=== PATIENT | female | born 1945 | race Caucasian/White ===

== ENCOUNTER 2018-10-13 16:45 | Inpatient (IN) | payer MEDICARE ==
[2018-10-13 17:07] VITALS: BP 171/93
[2018-10-13] MEDS ORDERED: Maalox 30 mL Cup PO PRN (17:11)
[2018-10-13] MEDS ORDERED: Magnesium Hydroxide (MOM) 30 mL UDC PO PRN (17:11)
[2018-10-14] MEDS ORDERED: GLUCAGON HCl 1 MG KIT IM PRN (00:36)
[2018-10-14] MEDS ORDERED: Dextrose 50% 50 mL Abboject IVP PRN (00:36)
[2018-10-14] MEDS: INSULIN LISPRO SLIDING SCALE 100 UNITS/ML UNIT SUBQ SCH ×4 (06:39→20:37)
[2018-10-14 07:49] LABS: CHOLESTEROL 179 mg/dL (<200); HDL -HIGH DENSITY LIPOPROTEIN 62 mg/dL (23-92); TRIGLYCERIDES 252 mg/dL (<150)
[2018-10-14] MEDS: Multivitamin Tab PO SCH (08:36)
--- NOTE | 2018-10-14 14:09 | Psychiatric Evaluation ---
DATE OF SERVICE: 10/14/2018 IDENTIFYING INFORMATION: The patient is a 72-year-old female. CHIEF COMPLAINT: I called 911 because I was drinking. HISTORY OF PRESENT ILLNESS: The patient reports she has been drinking too much, she drank 2 days in a row, but she drank before that and she felt not safe and anxious, so she called 911. She reported that she has been sleeping well. She has been anxious. Appetite varies. She denies any intent to harm herself or anyone. She reported never tried to harm herself. No auditory or visual hallucination. Lives with her son. PAST PSYCHIATRIC HISTORY: Denies prior psychiatric treatment other than being treated for alcohol dependence. MEDICAL HISTORY: As per medical doctor. ALLERGIES: THE PATIENT IS ALLERGIC TO SULFA ANTIBIOTICS. MEDICATIONS: She is also diabetic and on insulin, glucagon, ibuprofen. FAMILY AND SOCIAL HISTORY: The patient reports she has been for 18 years, was for 48 years. She has three children, one boy and 2 girls. She lives with her son. She reported that she has 12th grade education. 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 She lives on social [address]. MENTAL STATUS EXAMINATION: Appropriately dressed and groomed. She was not sure of her age, first she told me she was 72, then she said she was 74 going to 73. She, however, was able to tell me the date, where she is, why she is here. She denies any intent to harm himself or anyone. She denies any visual hallucination or paranoia. She reported that she is sleeping well. Appetite varies. No audiovisual, no paranoia. Her long-term is good for age, date of . Recent memory is good and events after coming here. Her insight about her illness is fair. She knows she has a problem. Judgment is poor with her drinking. IMPRESSION: Chronic alcohol dependence, generalized anxiety disorder. MEDICAL DIAGNOSES: As per medical doctor. INITIAL TREATMENT PLAN: The patient is already on Ativan to be given as needed if she is showing signs and symptoms of alcohol detoxification. I will be adding Neurontin, folic acid, and thiamine. We will do group therapy, milieu therapy, and individual therapy. ESTIMATED LENGTH OF STAY: 3-7 days. DISCHARGE CRITERIA: No longer detoxing, if any detox happens and decrease anxiety after discharge, outpatient treatment. [facility]# [id number]
--- NOTE | 2018-10-15 03:29 | History & Physical ---
ADMIT DATE: 10/13/2018 REASON FOR ADMISSION: Psychiatric disorder. HISTORY OF PRESENT ILLNESS: This 72-year-old female with underlying history of diabetes, mental disorder, admitted to Geropsych Unit for underlying psychiatric illnesses by Dr. Root. Dr. Root requested a medical H and P on this patient. The patient denies any medical complaints or concerns. PAST MEDICAL HISTORY: Diabetes with neuropathy. PAST SURGICAL HISTORY: Hysterectomy in the past. FAMILY HISTORY: Noncontributory. SOCIAL HISTORY: She lives at home. Denies any tobacco use. CURRENT MEDICATIONS: Reviewed. ALLERGIES: To SULFA. REVIEW OF SYSTEMS: As per HPI, 12-point system is negative. PHYSICAL EXAMINATION: VITAL SIGNS: Temperature 97.3, pulse 91, respiratory rate 20, blood pressure 150/70. HEENT: Unremarkable. HEART: S1, S2 normal. LUNGS: Clear to auscultation. ABDOMEN: Soft, nontender. No guarding. NEUROLOGIC: Alert, awake, follows commands, moves all extremities. EXTREMITIES: No edema noted. ASSESSMENT: 1. Diabetes type 2. 2. Diabetic neuropathy. 3. Hypertension. 4. Mental disorder. PLAN: The patient will be continued on blood sugar check, insulin sliding coverage will be given. The patient is on lisinopril for blood pressure. We will monitor vital signs closely. Follow up with primary MD upon discharge ____. Psych, follow with the psychiatrist. The patient is medically stable. Thank you Dr. Root for allowing me to participate in the care of this patient. [facility]# [id number]
[2018-10-15] MEDS: INSULIN LISPRO SLIDING SCALE 100 UNITS/ML UNIT SUBQ SCH ×4 (06:38→20:52)
[2018-10-15 07:06] LABS: A1C 6.3 % (4.8-5.6)
[2018-10-15] MEDS: Multivitamin Tab PO SCH (08:30)
--- NOTE | 2018-10-15 09:01 | Psychiatric Evaluation ---
DATE OF SERVICE: ADDENDUM MENTAL STATUS EXAMINATION: Appropriately dressed and groomed. She was not sure of her age, first she told me she was 72, then she said she was 74 going to 73. She, however, was able to tell me the date, where she is, why she is here. She denies any intent to harm himself or anyone. She denies any visual hallucination or paranoia. She reported that she is sleeping well. Appetite varies. No audiovisual, no paranoia. Her long-term is good for age, date of . Recent memory is good and events after coming here. Her insight about her illness is fair. She knows she has a problem. Judgment is poor with her drinking. IMPRESSION: Chronic alcohol dependence, generalized anxiety disorder. MEDICAL DIAGNOSES: As per medical doctor. INITIAL TREATMENT PLAN: The patient is already on Ativan to be given as needed if she is showing signs and symptoms of alcohol detoxification. I will be adding Neurontin, folic acid, and thiamine. We will do group therapy, milieu therapy, and individual therapy. ESTIMATED LENGTH OF STAY: 3-7 days. DISCHARGE CRITERIA: No longer detoxing, if any detox happens and decrease anxiety after discharge, outpatient treatment. JOB# [id number]
[2018-10-16] MEDS: INSULIN LISPRO SLIDING SCALE 100 UNITS/ML UNIT SUBQ SCH ×4 (06:44→20:37)
[2018-10-16] MEDS: Multivitamin Tab PO SCH (08:37)
--- NOTE | 2018-10-16 19:17 | Progress Notes ---
DATE: SUBJECTIVE: Chart reviewed and the patient interviewed. Also discussed the patient's condition with the staff and reviewed records and labs. The patient is still severely depressed and she is still anxious. The patient also is still feeling hopeless and helpless. She also is guarded and suspicious. She admitted that she was drinking heavily and that she has been depressed, but she cannot elaborate on reasons for her heavy drinking and depression. On the other hand, the patient has no symptoms or signs of withdrawal, but she is still anxious and depressed and slightly tremulous. ASSESSMENT: The patient is still depressed and suicidal and also high risk relapse. TREATMENT PLAN: Continue detox. Also, continue to monitor her behavior and her condition closely. Also, we will add Lexapro in a dose of 10 mg every day and we will continue to follow up closely. [facility]# [id number]
--- NOTE | 2018-10-16 21:39 | General Progress Note ---
Subjective - Review of Systems Service Date: 10/16/18 Subjective: Patient feels fine denied any complaints Objective - Results Recent Labs: Laboratory Last Values POC Glucose 124 MG/DL (70 - 105) H 10/16/18 17:09 Triglycerides 252 mg/dL (<150) H 10/14/18 07:18 Cholesterol 179 mg/dL (<200) 10/14/18 07:18 LDL Cholesterol Direct 108 mg/dL (75-193) 10/14/18 07:18 HDL Cholesterol 62 mg/dL (23-92) 10/14/18 07:18 TSH 2.86 uIU/ml (0.34-5.60) 10/14/18 07:18 - Physical Exam Vitals and I&O: Vital Signs Temp 97.6 F 10/16/18 14:00 Pulse 91 10/16/18 14:00 Resp 18 10/16/18 14:00 BP 153/92 10/16/18 14:00 Pulse Ox 98 10/16/18 14:00 Intake & Output 10/16/18 10/16/18 10/17/18 06:59 18:59 06:59 Intake Total 120 1500 Balance 120 1500 Intake: Oral 120 1500 Other: # Voids 1 3 # Bowel Movements 0 0 Active Medications: Current Medications Acetaminophen (Tylenol) 650 mg PO Q4HR PRN PRN Reason: Mild Pain / Temp above 100 Stop: 12/12/18 17:10 Last Admin: 10/14/18 20:37 Dose: 650 mg Al Hydrox/Mg Hydrox/Simethicone (Maalox) 30 ml PO Q4HR PRN PRN Reason: GI DISTRESS Stop: 12/12/18 17:10 Dextrose (D50w) 50 ml IVP PRN PRN PRN Reason: Blood Glucose less than 70 Stop: 12/13/18 00:35 Dextrose (Glutose 40%) 18.75 gm PO PRN PRN PRN Reason: Blood Glucose less than 70 Stop: 12/13/18 00:35 Escitalopram Oxalate (Lexapro) 10 mg PO DAILY [facility]; Protocol Stop: 12/14/18 08:59 Last Admin: 10/16/18 08:38 Dose: 10 mg Folic Acid (Folate) 1 mg PO DAILY [facility] Stop: 12/14/18 08:59 Last Admin: 10/16/18 08:37 Dose: 1 mg Gabapentin (Neurontin) 100 mg PO TID [facility] Stop: 12/13/18 13:59 Last Admin: 10/16/18 20:36 Dose: 100 mg Glucagon (Glucagen) 1 mg IM PRN PRN PRN Reason: Blood Glucose less than 70 Stop: 12/13/18 00:35 Ibuprofen (Motrin) 800 mg PO TID PRN PRN Reason: Pain (Mild) Stop: 12/12/18 20:59 Last Admin: 10/16/18 16:35 Dose: 800 mg Insulin Human Lispro (Humalog Insulin Sliding Scale) 0 units SUBQ ACHS [facility]; Protocol Stop: 12/13/18 07:29 Last Admin: 10/16/18 20:37 Dose: Not Given Lisinopril (Zestril) 10 mg PO DAILY [facility] Stop: 12/14/18 08:59 Last Admin: 10/16/18 08:38 Dose: 10 mg Lorazepam (Ativan) 0.5 mg PO Q4HR PRN; Protocol PRN Reason: Agitation Stop: 11/12/18 17:10 Last Admin: 10/13/18 17:48 Dose: 0.5 mg Magnesium Hydroxide (Milk Of Magnesia) 30 ml PO HS PRN PRN Reason: Constipation Multivitamins/Vitamin C (Theragran) 1 tab PO DAILY [facility] Stop: 12/13/18 08:59 Last Admin: 10/16/18 08:37 Dose: 1 tab Thiamine HCl (Vitamin B1) 100 mg PO DAILY [facility] Stop: 12/14/18 08:59 Last Admin: 10/16/18 08:38 Dose: 100 mg Trazodone HCl (Desyrel) 50 mg PO HS [facility]; Protocol Stop: 12/14/18 20:59 Last Admin: 10/16/18 20:36 Dose: 50 mg Zolpidem Tartrate (Ambien) 5 mg PO HS PRN PRN Reason: Insomnia Stop: 12/12/18 17:10 Last Admin: 10/14/18 20:37 Dose: 5 mg Cardiovascular: Regular rate Lungs: Clear to auscultation, Normal air movement Assessment/Plan - Assessment Assessment: DM with Neuropathy HTN Mental health disorder - Plan Plan: Continue current treatment Monitor vitals Monitor blood sugar Psych management per psychiatrist
--- NOTE | 2018-10-17 01:41 | Progress Notes ---
DATE: 10/16/2018 SUBJECTIVE: Chart reviewed and the patient interviewed. Also, discussed the patient's condition with the staff and reviewed records and labs. The patient is still severely anxious and is still severely depressed. The patient also is still withdrawn and interacting minimally with others. She also is still feeling hopeless and helpless. Lack of energy and lack of motivations. She also wants to stay by herself most of the time. ASSESSMENT: The patient is still depressed and is still high risk suicide. TREATMENT PLAN: Continue to monitor behavior and condition closely. Also, continue adjusting psychotropic medications and monitor behavior and work on her ineffective coping. Also, continue Lexapro 10 mg and followup. JOB# [id number]
[2018-10-17] MEDS: INSULIN LISPRO SLIDING SCALE 100 UNITS/ML UNIT SUBQ SCH ×4 (06:41→20:40)
[2018-10-17] MEDS: Multivitamin Tab PO SCH (08:15)
--- NOTE | 2018-10-17 08:26 | Progress Notes ---
DATE: 10/17/2018 SUBJECTIVE: Chart was reviewed and the patient interviewed. Also discussed the patient's condition with the staff and reviewed records and labs. The patient is still in a depressed mood. The patient also is still guarded and is withdrawn and interacting minimally with others. The patient also still needs close monitoring because of her severe level of depression. She also is feeling guarded and withdrawn with minimum interaction. ASSESSMENT: The patient is still depressed and still high risk suicide. TREATMENT PLAN: We will continue monitoring her behavior and her condition closely. Also continue adjusting psychotropic medications. Also, questionable if the patient can return to her placement and it is my understanding that the patient will need placement and we will discuss that with the patient's son in regard to placement issue. At the same time, we will continue Lexapro 10 mg every day and trazodone 50 mg at bedtime and we will continue to follow up closely. Also, continue to work on her ineffective coping. JOB# [id number]
[2018-10-18] MEDS: INSULIN LISPRO SLIDING SCALE 100 UNITS/ML UNIT SUBQ SCH ×4 (06:35→20:54)
[2018-10-18] MEDS: Multivitamin Tab PO SCH (08:35)
--- NOTE | 2018-10-18 15:39 | Progress Notes ---
DATE: 10/18/2018 Case was discussed with staff of the patient, reviewed records. This is a well known case to me, I have admitted her covering for Dr. Root few days ago on 10/13/2018. Continues to be depressed, continues to be guarded, withdrawn, poor interaction with staff and others. Continues to be guarded, withdrawn. Dr. Root continue her Lexapro 10 mg daily, trazodone 50 mg at bedtime. The patient also continues to be confused. The patient minimizing events after admission. Continues to have poor insight in general about her treatment. The patient is on Lexapro 10 mg daily. No side effects with the medication, no sedation, no nausea. Also, she has been detoxed from alcohol. We will continue outpatient group therapy, milieu therapy, adjust medication as needed. JOB# [id number]
[2018-10-19] MEDS: INSULIN LISPRO SLIDING SCALE 100 UNITS/ML UNIT SUBQ SCH ×4 (06:32→21:28)
[2018-10-19] MEDS: Multivitamin Tab PO SCH (08:55)
--- NOTE | 2018-10-19 14:38 | Progress Notes ---
DATE: 10/19/2018 Case was discussed with staff of the patient, reviewed records. The patient looks much better today. She is better groomed. She is able to smile. She reports her depression is improving. She knew she was able to contract for safety. She reported that she does not want to harm herself; however, she is also in recovery from tapering her off alcohol with staff also are working on her placement. No side effects with the medication, no sedation, no nausea. She is on Lexapro and trazodone. We will continue outpatient group therapy, milieu therapy, and adjust medications as needed. JOB# [id number]
[2018-10-20] MEDS: INSULIN LISPRO SLIDING SCALE 100 UNITS/ML UNIT SUBQ SCH ×4 (06:55→20:44)
[2018-10-20] MEDS: Multivitamin Tab PO SCH (08:20)
--- NOTE | 2018-10-20 19:57 | Progress Notes ---
DATE: SUBJECTIVE: Chart reviewed and the patient interviewed. Also discussed the patient's condition with the staff and reviewed records and labs. The patient continued to be in a depressed mood. The patient also is still interacting minimally with others. The patient also still wants to be left alone. The patient also is guarded. She also is still talking about going home, but at the same time, it seemed that the patient is not having any safe plan to be home by herself. Otherwise, the patient still needs a lot of redirections. ASSESSMENT: The patient is depressed and still needs redirections. TREATMENT PLAN: Continue to monitor behavior and condition closely. Also seeing that the patient is sleeping better with trazodone 50 mg at bedtime. We will increase Lexapro to 15 mg every day and also continue Neurontin in a dose of 100 mg 3 times a day. I called the patient's son Saturday and left him a message to call me so as to discuss with him placement issue, but so far I did not hear anything back from the patient's son yet. At the same time, we will try to call him again today and discuss with him placement issue and we will follow up from there. JOB# [id number]
[2018-10-21] MEDS: INSULIN LISPRO SLIDING SCALE 100 UNITS/ML UNIT SUBQ SCH ×4 (06:42→20:15)
--- NOTE | 2018-10-21 08:28 | Progress Notes ---
DATE: SUBJECTIVE: Chart reviewed and the patient interviewed. Also discussed the patient's condition with the staff and reviewed records and labs. The patient is still depressed and is still withdrawn. The patient also is still forgetful and needs redirections. The patient is depressed because her children does not come to visit her. Otherwise, the patient is cooperative and compliant with taking her medications with no side effects of medications. ASSESSMENT: The patient is still depressed and still needs close monitoring. TREATMENT PLAN: Continue to monitor behavior and condition closely. Also, continue working on discharge plans. I did leave a message to the patient's son yesterday, but I did not hear anything back yet. At the same time, we will continue monitoring behavior and continue to follow up closely. JOB# [id number]
[2018-10-21] MEDS: Multivitamin Tab PO SCH (08:50)
[2018-10-22] MEDS: INSULIN LISPRO SLIDING SCALE 100 UNITS/ML UNIT SUBQ SCH ×4 (06:39→20:43)
[2018-10-22] MEDS: Multivitamin Tab PO SCH (08:38)
--- NOTE | 2018-10-22 21:31 | Progress Notes ---
DATE: 10/22/2018 SUBJECTIVE: The patient is currently in the hospital, was apparently drinking. The patient tells me she was drinking too much. History of alcoholism, also high anxiety. Dr. Root saw the patient yesterday, noting that she remained depressed, withdrawn, forgetful, upset because kids were not visiting. Ongoing despair, hopelessness. The patient is denying any SI, seems to be more engaged. PLAN: We are trying to confirm a safe discharge plan. We will continue to monitor. Continue dosing of Lexapro. [facility]# [id number]
[2018-10-23] MEDS: INSULIN LISPRO SLIDING SCALE 100 UNITS/ML UNIT SUBQ SCH ×4 (06:43→20:14)
--- NOTE | 2018-10-23 07:43 | Progress Notes ---
DATE: 10/23/2018 SUBJECTIVE: Chart reviewed and the patient interviewed. Also, discussed the patient's condition with the staff and reviewed records and labs. The patient is still anxious and she is still withdrawn and guarded. The patient also is interacting minimally with others. The patient also still has depressed mood and is still withdrawn, but she seems to be more interacting than before. Otherwise, the patient is still waiting for placement and I tried to call her son and I will try to call him again today. It seems that her son was on a vacation according to the patient and according to him, not answering my calls. We will try to call him again today. JOB# [id number]
[2018-10-23] MEDS: Multivitamin Tab PO SCH (08:46)
[2018-10-24] MEDS: INSULIN LISPRO SLIDING SCALE 100 UNITS/ML UNIT SUBQ SCH ×4 (06:32→20:57)
--- NOTE | 2018-10-24 07:47 | Progress Notes ---
DATE: SUBJECTIVE: Chart reviewed and the patient interviewed. Also discussed the patient's condition with the staff and reviewed records and labs. The patient is still anxious and is still guarded. The patient also is still withdrawn, and she is still unable to provide safe plan for self-care and for discharge. The patient is still in a depressed mood. Otherwise, the patient is compliant with taking her medications. I tried to get hold of the patient's son, but he is [place] of the [place] according to the new information I got today from the patient. The patient did provide me with her daughter's phone number and I tried to get hold of her daughter to arrange for her discharge. At the same time, we will continue to monitor her behavior and continue current treatment plan and current medications and followup. [facility]# [id number]
[2018-10-24] MEDS: Multivitamin Tab PO SCH (08:32)
[2018-10-25] MEDS: INSULIN LISPRO SLIDING SCALE 100 UNITS/ML UNIT SUBQ SCH ×4 (07:09→20:52)
[2018-10-25] MEDS: Multivitamin Tab PO SCH (08:41)
[2018-10-26] MEDS: INSULIN LISPRO SLIDING SCALE 100 UNITS/ML UNIT SUBQ SCH ×4 (06:56→21:31)
[2018-10-26] MEDS: Multivitamin Tab PO SCH (08:33)
--- NOTE | 2018-10-26 10:19 | Progress Notes ---
DATE: 10/25/[address] Root. IDENTIFYING DATA: A 73-year-old female with a history of alcohol use. She was initially brought in here since she was drinking too much, drinking about 2 days in a row. She feels anxious. Did not feel safe with herself, had called 911. Nursing staff reported "fair mood", although still anxious and withdrawn. As early as yesterday primary psychiatrist documented still guarded, anxious state, today in [id number] evaluation. Denies any withdrawal symptoms. Have been disengaged, reporting that she has a place to go, but she does not have a schwartz and disorganized. MENTAL STATUS EXAMINATION: Still withdrawn, anxious. ASSESSMENT AND PLAN: Mild depressive symptoms continue to persist, although compliant with medications. Working very closely with her shoe parts caser for safe disposition once the patient is further psychiatrically stabilized. Reconciliation medication reviewed. Currently on Lexapro 15 mg, gabapentin 100 mg p.o. t.i.d. [facility]# [id number]
--- NOTE | 2018-10-26 21:30 | General Progress Note ---
Subjective - Review of Systems Service Date: 10/26/18 Subjective: Patient feels fine denied any complaints Objective - Results Recent Labs: Laboratory Last Values POC Glucose 99 MG/DL (70 - 105) 10/26/18 11:45 Triglycerides 252 mg/dL (<150) H 10/14/18 07:18 Cholesterol 179 mg/dL (<200) 10/14/18 07:18 LDL Cholesterol Direct 108 mg/dL (75-193) 10/14/18 07:18 HDL Cholesterol 62 mg/dL (23-92) 10/14/18 07:18 TSH 2.86 uIU/ml (0.34-5.60) 10/14/18 07:18 - Physical Exam Vitals and I&O: Vital Signs Temp 98.1 F 10/26/18 20:00 Pulse 75 10/26/18 20:00 Resp 18 10/26/18 20:00 BP 160/81 10/26/18 20:00 Pulse Ox 97 10/26/18 20:00 Intake & Output 10/26/18 10/26/18 10/27/18 06:59 18:59 06:59 Intake Total 120 1400 Balance 120 1400 Intake: Oral 120 1400 Other: # Voids 3 4 # Bowel Movements 1 Active Medications: Current Medications Acetaminophen (Tylenol) 650 mg PO Q4HR PRN PRN Reason: Mild Pain / Temp above 100 Stop: 12/12/18 17:10 Last Admin: 10/23/18 20:15 Dose: 650 mg Al Hydrox/Mg Hydrox/Simethicone (Maalox) 30 ml PO Q4HR PRN PRN Reason: GI DISTRESS Stop: 12/12/18 17:10 Dextrose (D50w) 50 ml IVP PRN PRN PRN Reason: Blood Glucose less than 70 Stop: 12/13/18 00:35 Dextrose (Glutose 40%) 18.75 gm PO PRN PRN PRN Reason: Blood Glucose less than 70 Stop: 12/13/18 00:35 Escitalopram Oxalate (Lexapro) 15 mg PO DAILY SOLITARIO; Protocol Stop: 12/19/18 08:59 Last Admin: 10/26/18 08:32 Dose: 15 mg Folic Acid (Folate) 1 mg PO DAILY [facility] Stop: 12/14/18 08:59 Last Admin: 10/26/18 08:33 Dose: 1 mg Gabapentin (Neurontin) 100 mg PO TID [facility] Stop: 12/13/18 13:59 Last Admin: 10/26/18 14:05 Dose: 100 mg Glucagon (Glucagen) 1 mg IM PRN PRN PRN Reason: Blood Glucose less than 70 Stop: 12/13/18 00:35 Ibuprofen (Motrin) 800 mg PO TID PRN PRN Reason: Pain (Mild) Stop: 12/12/18 20:59 Last Admin: 10/25/18 14:08 Dose: 800 mg Insulin Human Lispro (Humalog Insulin Sliding Scale) 0 units SUBQ ACHS [facility]; Protocol Stop: 12/13/18 07:29 Last Admin: 10/26/18 16:30 Dose: Not Given Lisinopril (Zestril) 10 mg PO DAILY [facility] Stop: 12/14/18 08:59 Last Admin: 10/26/18 08:33 Dose: 10 mg Lorazepam (Ativan) 0.5 mg PO Q4HR PRN; Protocol PRN Reason: Agitation Stop: 11/12/18 17:10 Last Admin: 10/13/18 17:48 Dose: 0.5 mg Magnesium Hydroxide (Milk Of Magnesia) 30 ml PO HS PRN PRN Reason: Constipation Multivitamins/Vitamin C (Theragran) 1 tab PO DAILY [facility] Stop: 12/13/18 08:59 Last Admin: 10/26/18 08:33 Dose: 1 tab Thiamine HCl (Vitamin B1) 100 mg PO DAILY [facility] Stop: 12/14/18 08:59 Last Admin: 10/26/18 08:33 Dose: 100 mg Trazodone HCl (Desyrel) 50 mg PO HS [facility]; Protocol Stop: 12/14/18 20:59 Last Admin: 10/25/18 20:52 Dose: 50 mg Zolpidem Tartrate (Ambien) 5 mg PO HS PRN PRN Reason: Insomnia Stop: 12/12/18 17:10 Last Admin: 10/23/18 20:15 Dose: 5 mg Cardiovascular: Regular rate Lungs: Clear to auscultation, Normal air movement Assessment/Plan - Assessment Assessment: DM with Neuropathy HTN Mental health disorder - Plan Plan: Continue current treatment Monitor vitals Monitor blood sugar Psych management per psychiatrist Nutritional Asmnt/Malnutr-PDOC - Dietary Evaluation Malnutrition Findings (Please click <Entered> for more info): Nutritional Asmnt/Malnutrition Start: 10/17/18 13: 53 Text: Status: Complete Freq: Protocol: Document 10/17/18 13:53 BG (Rec: 10/17/18 13:56 BG [email or web address]) Nutritional Asmnt/Malnutrition Patient General Information Nutritional Screening Moderate Risk Diagnosis Psychosis Pertinent Medical Hx/Surgical Hx DM with neuropathy, Mental disorder, Hysterectomy in the past Subjective Information Pt was downgraded to low risk d/t well tolerance to meal/ diet order and meeting nutritional needs. Pt is a 72-year-old female from home admitted on 10/13 d/t psychiatric disorder. Per Meal/Nutrition Activity Record , Pt PO intake 90% meals x 3 days. HT: 50 WT: 160 LB (72.73 kg) ADJ BW: 56.39 kg BMI: 31.28 (Obese) GI: WNL, Soft, Non-Tender BM: 10/15 x1 I/O: 1620/Not Noted Skin: WNL, Intact Rob: 19 Diet Order: Cardiac, NA2GM Estimated Energy Needs: (Obese , ADJ BW) 0776-9783 kcals (20-25 kcals/ kg) 45-51g Pro (0.8-0.9g/kg) 4649-9746 ml (25-30 ml/kg) Pt is eating 90% of meals x 3 days per Meal/Nutrition Activity Record. Dietary is currently providing an estimated 2628 kcals and 114 gm Pro, per Pt PO intake this is providing an estimated 2365 kcals and 102gm Pro to meet 100% kcal and 100+% Pro needs- adequate. Current Diet Order/ Nutrition Support Cardiac, NA2GM Pertinent Medications Maalox m(PRN), D50w (PRN), Glutose 40% (PRN), Folate, Glucagen (PRN), INS-SS, MOM ( PRN), Theragran, Vitamin B1 Pertinent Labs 10/16: POC Glucose (last 24 hours) 124, 140 Nutritional Hx/Data Height 1.52 m Height (Calculated Centimeters) 152.4 Current Weight (lbs) 72.575 kg Weight (Calculated Kilograms) 72.6 Weight (Calculated Grams) 73543.8 [place] Body Weight 45.5 kg % [place] Body Weight 160 Body Mass Index (BMI) 31.2 Weight Status Obese GI Symptoms GI Symptoms None Last BM 10/15 x1 Skin Integrity/Comment: WNL, Intact Rob: 19 Current %PO Good (75-100%) Estimated Nutritional Goals BEE in Kcals: Adj wt of IBW Calories/Kcals/Kg 20-25 Kcals Calculated 2175-7798 Protein: Adj wt of IBW Protein g/k.8-0.9g Protein Calculated 45-51 Fluid: ml 2105-2063 ml (25-30 ml/kg) Nutritional Problem No current Nutrition Prob Problem N/A Etiology N/A Signs/Symptoms: N/A Malnutrition Related to Morbid Obesity Malnutrition related to morbid obesity No Intervention/Recommendation Comments 1.Continue with Cardiac, NA2GM diet as ordered. 2. Continue with anti- hyperglycemic medications for glucose control per MD order. Expected Outcomes/Goals Expected Outcomes/Goals 1.PO intake to continue to meet 75% of nutritional needs. 2.Monitor PO intake, wt, skin integrity, and nutrition related labs to trend WNL. 3.F/U as low risk in 7 days,
--- NOTE | 2018-10-27 05:15 | Progress Notes ---
DATE: 10/26/[address] Root. SUBJECTIVE: The patient was seen and evaluated. The patient's charts were reviewed. Nursing staff reporting that the patient observed to be easily anxious. Today on [id number] evaluation, the patient perseverates about being discharged. She reports she ____ schwartz is locked up. When attempting to discuss what that means, she just reports her landlord is not available until later on. MENTAL STATUS EXAMINATION: Anxious, suspicious, depressed. ASSESSMENT AND PLAN: The patient continues to demonstrate a lot of anxiety, depressive symptoms and unable to clarify a safe disposition plan in regards to her outside resources. We will continue communicating with the patient's family. [facility]# [id number]
[2018-10-27] MEDS: INSULIN LISPRO SLIDING SCALE 100 UNITS/ML UNIT SUBQ SCH ×4 (06:48→21:05)
[2018-10-27] MEDS: Multivitamin Tab PO SCH (08:34)
--- NOTE | 2018-10-27 23:12 | Progress Notes ---
DATE: 10/27/2018 SUBJECTIVE: Case was discussed with staff of the patient, reviewed records. Covering for Dr. Root. This is a well-known case to me, I have seen her before covering for Dr. Root. The patient continues to be depressed, suspicious, and anxious. She is no longer in detox. She is sleeping better, eating better. No side effects with the medication, no sedation, and no nausea. She continues to be unable to make safe plan for self-care. Dr. Root tried to get hold of her son. Today, she told me that her son came back from [place]. Dr. Root tried to call her daughter to arrange for discharge and working on discharge plan. We will continue to work with the patient in group therapy, milieu therapy, and adjust the medications as needed. JOB# [id number]
[2018-10-28] MEDS: INSULIN LISPRO SLIDING SCALE 100 UNITS/ML UNIT SUBQ SCH ×4 (06:41→20:19)
[2018-10-28] MEDS: Multivitamin Tab PO SCH (08:47)
--- NOTE | 2018-10-28 13:10 | Progress Notes ---
DATE: 10/28/2018 SUBJECTIVE: Case was discussed with staff of the patient, reviewed records. Covering for Dr. Root. The patient reported that her son is back home and ____ leave a message for Dr. Root to call him. The patient is sleeping better, eating better. No suicidal ideation, no homicidal ideation, no paranoia, no side effects. Continues to have episodes of feeling depressed at times suspicious, but in general, she is improving. We will continue outpatient group therapy, milieu therapy, adjust medication as needed. [facility]# [id number]
[2018-10-29] MEDS: INSULIN LISPRO SLIDING SCALE 100 UNITS/ML UNIT SUBQ SCH ×2 (06:39→11:30)
--- NOTE | 2018-10-29 08:01 | Discharge Summary ---
DATE OF DISCHARGE: 10/29/2018 AGE: 72 SEX: Female. PHYSICIAN: Dr. Root. FINAL DIAGNOSES AND PRIMARY DIAGNOSIS: Depressive mood disorder, unspecified. Generalized anxiety disorder. SECONDARY: Alcohol use disorder. REASON FOR HOSPITALIZATION: The patient was admitted to the hospital because of heavy drinking and inability to stop drinking and the patient was severely anxious and has variable appetite and was in a depressed mood. HOSPITAL COURSE: The patient continued to be anxious and depressed. The patient was given Lexapro and the dose adjusted to 50 mg every day. She also was given gabapentin and the dose adjusted to 100 mg 3 times a day. Family and myself felt that the patient is not threat to be discharged home and [facility] accepted the patient. Physical examination of the patient was showing that the patient has history of diabetes mellitus. Otherwise, no major medical problems. Dr. Juan monitored the patient's condition closely. AFTER DISCHARGE PLANS: The patient discharged from the hospital and went to [facility] that accepted the patient. The patient to be followed there. EXPECTED OUTCOME AFTER DISCHARGE: Fair if the patient continued to take psychotropic medications and follow up with discharge plans. JOB# [id number]
[2018-10-29] MEDS: Multivitamin Tab PO SCH (09:00)
== END 2018-10-29 16:55 | DRG 881 ==
LOC: GERO 16:45
PROVIDERS: ADMIT Psychiatry & Neurology Psychiatry; ATTEND Psychiatry & Neurology Psychiatry
DX: F32.9 Major depressive disorder, single episode, unspecified (principal); F41.1 Generalized anxiety disorder; F10.20 Alcohol dependence, uncomplicated; E11.40 Type 2 diabetes mellitus with diabetic neuropathy, unspecified; I10 Essential (primary) hypertension; Z90.710 Acquired absence of both cervix and uterus; Z88.2 Allergy status to sulfonamides
CPT/HCPCS: 36415-UA; 80061-TC; 82948-90; 83036-90; 84443-TC; 90899; G0410; Z7610